=== PATIENT | female | born 2000 | race Caucasian/White ===

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

== ENCOUNTER 2019-07-26 16:55 | Emergency (ER) | payer BC, SELFPAY ==
[2019-07-26 17:30] VITALS: BP 104/69; PULSE 71; RESP 20; TEMP 36.8; O2SAT 99; BMI 27.8
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
[2019-07-26 17:39] LABS: Apearance,Urine Cloudy (Clear); Bilirubin,Urine Negative (Negative); Blood, Urine Trace (Negative); Color,Urine Yellow (Yellow); Glucose,Urine (UA) Negative (Negative); Ketones,Urine Negative (Negative); Protein,Urine Negative (Negative); Specific Gravity, Urine 1.015 (1.005-1.030); UTC Strep Screen (Rapid) Negative (Negative)
[2019-07-26 17:40] LABS: UTC Leukocyte Esterase,Urine 1+ (Negative); UTC Nitrate,Urine Negative (Negative); UTC Pregnancy Test, Urine Negative (Negative); Urobilinogen,Urine 0.2 EU/dl (0.2)
[2019-07-26 18:03] VITALS: BP 104/69; PULSE 71; RESP 20; TEMP 36.8; O2SAT 99
== END 2019-07-26 18:09 | disposition home or self-care (01) ==
PROVIDERS: Emergency Provider Nurse Practitioner; PCP Family Medicine
DX: N39.0 Urinary tract infection, site not specified (principal)
CPT/HCPCS: 81003; 81025; 87086; 87880; 99202

== ENCOUNTER → 2020-02-06 15:58 | Outpatient (CLI) | payer BC, SELFPAY ==
[2020-02-06 17:22] LABS: Basophils % 0.3 % (0.1-2.0); Eosinophils # 0.1 K/mm3 (0.0-0.4); Lymphocytes # 1.8 K/mm3 (0.7-4.5); Mean Corpuscular HGB Conc 32.3 g/dL (31.8-35.4); Mean Corpuscular Hemoglobin 29.6 pg (27.0-31.2); Mean Corpuscular Volume 91.6 fl (81-99); Mean Platelet Volume 9.2 fl (7.4-10.4); Monocytes # 0.4 K/mm3 (0.1-1.0); Monocytes % 4.7 % (1.7-9.3); Neutrophils # 5.6 K/mm3 (1.8-7.8); Platelet Count 208 K/mm3 (142-424); Red Blood Count 4.04 M/mm3 (4.20-5.40); Red Cell Distribution Width 12.5 % (11.5-17.5); White Blood Count 7.9 K/mm3 (4.5-13.0)
[2020-02-08 11:25] LABS: Covid-19 Nasal PCR Sendout Lex Not Detected
== END ==
PROVIDERS: PCP Physician Assistant; Visit Provider Physician Assistant
DX: Z03.818 Encounter for observation for suspected exposure to other biological agents ruled out (principal)
CPT/HCPCS: 36415; 85025; 87275; 87276; U0004

== ENCOUNTER 2020-06-15 05:15 | Outpatient (CLI) | payer BC, SELFPAY ==
[2020-06-15 05:27] VITALS: BMI 39.4
[2020-06-15 05:51] VITALS: BP 131/71; PULSE 89; RESP 17; TEMP 36.7; O2SAT 97; BMI 37.0
[2020-06-15 06:14] LABS: Microscopic, Urine URINE MICROSCOPIC (MICROSCOPIC)
[2020-06-15 06:20] LABS: Appearance,Urine SL CLOUDY (Clear); Bilirubin,Urine Negative (Negative); Blood, Urine Negative (Negative); Color,Urine YELLOW (Yellow); Glucose,Urine (UA) Negative (Negative); Ketones,Urine Negative (Negative); Leukocyte Esterase,Urine Negative (Negative); Nitrate,Urine Negative (Negative); Protein,Urine Negative (Negative); Specific Gravity, Urine 1.015 (1.005-1.030); Urobilinogen,Urine 0.2 EU/dl (0.2)
[2020-06-15 06:29] LABS: Amorphous Sediment,Urine 1+ /lpf; Bacteria,Urine Trace /lpf; Squamous Epithelial Cell,Urine TNTC #/hpf (0-5); WBC,Urine Occasional #/hpf (0-3)
[2020-06-15 06:32] LABS: Benzodiazepines Screen,Urine Negative ng/ml (<200)
[2020-06-15 06:33] LABS: Amphetamine/Metha Screen,Urine Negative ng/ml (<1000)
[2020-06-15 06:34] LABS: Barbiturates Screen,Urine Negative ng/ml (<200); Cannabinoid Screen,Urine Negative ng/ml (<50)
[2020-06-15 06:35] LABS: Cocaine Screen,Urine Negative ng/ml (<300); Methadone Screen,Urine Negative ng/ml (<300)
[2020-06-15 06:36] LABS: Opiate Screen,Urine Negative ng/ml (<300)
[2020-06-15 06:37] LABS: Phencyclidine Screen,Urine Negative ng/ml (<25)
== END 2020-06-15 06:25 | disposition home or self-care (01) ==
LOC: OBOUT 05:18 → OB 05:20
PROVIDERS: PCP Family Medicine; Referring Provider Student in an Organized Health Care Education/Training Program; Visit Provider Obstetrics & Gynecology
DX: O21.9 Vomiting of pregnancy, unspecified (principal); Z3A.33 33 weeks gestation of pregnancy
CPT/HCPCS: 59025; 80305; 81001; G0463

== ENCOUNTER → 2020-12-09 15:02 | Outpatient (CLI) | payer BC, SELFPAY ==
--- NOTE | 2020-12-09 15:20 | ECG_ITS ---
APPROVED REPORT Exam: Resting ECG HR:60 bpm ECG Measurements Heart Rate [address] 168 P -9 QRSd 64 QRS 11 QT 410 T 0 QTc 410 Conclusion Normal sinus rhythm Low voltage QRS Late r wave progression Abnormal ECG Electronically signed by : Antonio Orozco MD 12/09/2020 21:16:07
== END ==
PROVIDERS: PCP Physician Assistant; Visit Provider Nurse Practitioner Family
DX: R42 Dizziness and giddiness (principal)
CPT/HCPCS: 93005

== ENCOUNTER → 2021-01-26 13:28 | Outpatient (CLI) | payer BC, SELFPAY ==
[2021-01-26 14:01] LABS: Chlamydophila Pneumoniae, PCR Not Detected (NotDetected); Mycoplasma Pneumoniae, PCR Not Detected (NotDetected)
[2021-01-26 14:04] LABS: Adenovirus,PCR Not Detected (NotDetected); Bordetella Pertussis Not Detected (NotDetected); Coronavirus 229E Not Detected (NotDetected); Coronavirus NL63 Not Detected (NotDetected); Coronavirus OC43 Not Detected (NotDetected); Coronovirus HKU1,PCR Not Detected (NotDetected); Human Metapneumovirus Not Detected (NotDetected); Influenza A, PCR Not Detected (NotDetected); Influenza AH1, 2009 Not Detected (NotDetected); Influenza AH1, PCR Not Detected (NotDetected); Influenza AH3,PCR Not Detected (NotDetected); Influenza B, PCR Not Detected (NotDetected); Parainfluenza 1, PCR Not Detected (NotDetected); Parainfluenza 2, PCR Not Detected (NotDetected); Parainfluenza 3, PCR Not Detected (NotDetected); Parainfluenza 4, PCR Not Detected (NotDetected); Respiratory Syncytial Virus Not Detected (NotDetected); Rhinovirus/Enterovirus Not Detected (NotDetected)
[2021-01-26 14:33] LABS: Basophils % 0.8 % (0.1-2.0); Eosinophils % 0.1 % (0.1-12.0); Hematocrit 38.7 % (37.0-47.0); Hemoglobin 12.9 g/dL (12.2-16.2); Lymphocytes # 0.7 K/mm3 (0.7-4.5); Lymphocytes % 24.2 % (10-50); Mean Corpuscular HGB Conc 33.2 g/dL (31.8-35.4); Mean Corpuscular Hemoglobin 28.8 pg (27.0-31.2); Mean Corpuscular Volume 86.7 fl (81-99); Mean Platelet Volume 11.4 fl (7.4-10.4); Monocytes # 0.3 K/mm3 (0.1-1.0); Monocytes % 11.6 % (1.7-9.3); Neutrophils # 1.9 K/mm3 (1.8-7.8); Neutrophils % 63.3 % (37.0-80.0); Platelet Count 162 K/mm3 (142-424); Red Blood Count 4.47 M/mm3 (4.20-5.40); Red Cell Distribution Width 13.7 % (11.5-17.5); White Blood Count 2.9 K/mm3 (4.8-10.8)
[2021-01-26 15:52] LABS: Coronavirus 19, PCR Detected (NotDetected)
--- NOTE | 2021-01-27 12:01 | PC.NURSE ---
notified pt of positive COVID test results at this time
== END ==
PROVIDERS: PCP Physician Assistant; Visit Provider Family Medicine
DX: U07.1 COVID-19 (principal)
CPT/HCPCS: 36415; 85025; 87581; 87632; 87798; C9803; U0003; U0005

== ENCOUNTER → 2021-02-05 14:50 | Outpatient (CLI) | payer BC, SELFPAY ==
--- NOTE | 2021-02-05 15:00 | XR_ITS ---
PROCEDURE: XR CHEST PORTABLE CLINICAL HISTORY: COVID TESTING COMPARISON: No exams were available for comparison FINDINGS: The cardiomediastinal silhouette and pulmonary vascularity are within normal limits. No airspace disease apparent. There is a 10 mm nodule in the left midlung. The nodule does not appear calcified and margins are somewhat irregular superiorly. No acute bony abnormalities. IMPRESSION: 10 mm left midlung nodule. Suggest old films for comparison if available. If no old films are available then nonemergent unenhanced chest CT may provide further evaluation. No acute finding. Dictated by: Renaldo Varela MD 02/05/2021 15:39 Renaldo Varela MD in [place] 02/05/2021 15:39
[2021-02-05 16:32] LABS: Basophils % 0.4 % (0.1-2.0); Eosinophils # 0.1 K/mm3 (0.0-0.4); Eosinophils % 1.1 % (0.1-12.0); Hematocrit 46.2 % (37.0-47.0); Hemoglobin 15.1 g/dL (12.2-16.2); Lymphocytes # 2.1 K/mm3 (0.7-4.5); Lymphocytes % 30.8 % (10-50); Mean Corpuscular HGB Conc 32.6 g/dL (31.8-35.4); Mean Corpuscular Hemoglobin 28.5 pg (27.0-31.2); Mean Corpuscular Volume 87.4 fl (81-99); Mean Platelet Volume 10.3 fl (7.4-10.4); Monocytes # 0.4 K/mm3 (0.1-1.0); Monocytes % 5.2 % (1.7-9.3); Neutrophils # 4.3 K/mm3 (1.8-7.8); Neutrophils % 62.5 % (37.0-80.0); Platelet Count 276 K/mm3 (142-424); Red Blood Count 5.28 M/mm3 (4.20-5.40); Red Cell Distribution Width 13.1 % (11.5-17.5)
== END ==
PROVIDERS: PCP Family Medicine; Visit Provider Nurse Practitioner
DX: Z20.822 Contact with and (suspected) exposure to COVID-19 (principal)
CPT/HCPCS: 36415; 71045; 85025

== ENCOUNTER → 2021-05-24 14:13 | Outpatient (CLI) | payer BC, SELFPAY ==
[2021-05-24 15:21] LABS: Basophils # 0.1 K/mm3 (0-0.2); Basophils % 0.6 % (0.1-2.0); Eosinophils # 0.1 K/mm3 (0.0-0.4); Eosinophils % 1.3 % (0.1-12.0); Hematocrit 41.3 % (37.0-47.0); Hemoglobin 13.4 g/dL (12.2-16.2); Lymphocytes # 2.3 K/mm3 (0.7-4.5); Lymphocytes % 25.5 % (10-50); Mean Corpuscular HGB Conc 32.4 g/dL (31.8-35.4); Mean Corpuscular Hemoglobin 30.2 pg (27.0-31.2); Mean Platelet Volume 10.1 fl (7.4-10.4); Monocytes # 0.5 K/mm3 (0.1-1.0); Monocytes % 4.9 % (1.7-9.3); Neutrophils # 6.2 K/mm3 (1.8-7.8); Neutrophils % 67.7 % (37.0-80.0); Platelet Count 267 K/mm3 (142-424); Red Blood Count 4.44 M/mm3 (4.20-5.40); Red Cell Distribution Width 12.7 % (11.5-17.5); White Blood Count 9.1 K/mm3 (4.8-10.8)
== END ==
PROVIDERS: PCP Family Medicine; Visit Provider Family Medicine
DX: Z20.822 Contact with and (suspected) exposure to COVID-19 (principal)
CPT/HCPCS: 36415; 85025; 87275; 87276; C9803; U0003; U0005

== ENCOUNTER 2021-12-09 19:04 | Emergency (ER) | payer BC, OTHER, SELFPAY ==
[2021-12-09 19:07] VITALS: BP 117/84; PULSE 84; RESP 18; TEMP 36.7; O2SAT 99; BMI 31.8
[2021-12-09 19:36] LABS: Microscopic, Urine URINE MICROSCOPIC (MICROSCOPIC)
[2021-12-09 19:37] LABS: Appearance,Urine CLEAR (Clear); Bilirubin,Urine Negative (Negative); Blood, Urine 2+ (Negative); Color,Urine YELLOW (Yellow); Glucose,Urine (UA) Negative (Negative); Ketones,Urine Negative (Negative); Leukocyte Esterase,Urine Negative (Negative); Nitrate,Urine Negative (Negative); Protein,Urine Negative (Negative); Specific Gravity, Urine 1.025 (1.005-1.030); Urobilinogen,Urine 0.2 EU/dl (0.2)
[2021-12-09 19:46] LABS: Urine Pregnancy, HCG Qual. Negative (Negative)
[2021-12-09 19:56] LABS: WBC,Urine Occasional #/hpf (0-3)
[2021-12-09 20:05] LABS: Basophils % 0.7 % (0.1-2.0); Eosinophils # 0.1 K/mm3 (0.0-0.4); Hematocrit 39.9 % (37.0-47.0); Hemoglobin 13.1 g/dL (12.2-16.2); Lymphocytes % 32.6 % (10-50); Mean Corpuscular HGB Conc 32.8 g/dL (31.8-35.4); Mean Corpuscular Volume 91.3 fl (81-99); Mean Platelet Volume 9.7 fl (7.4-10.4); Monocytes # 0.3 K/mm3 (0.1-1.0); Monocytes % 4.7 % (1.7-9.3); Neutrophils # 3.6 K/mm3 (1.8-7.8); Neutrophils % 59.9 % (37.0-80.0); Platelet Count 279 K/mm3 (142-424); Red Blood Count 4.37 M/mm3 (4.20-5.40); Red Cell Distribution Width 12.7 % (11.5-17.5)
[2021-12-09 20:15] LABS: Chloride 103 mmol/L (98-107); Potassium 3.8 mmoL/L (3.5-5.1); Sodium 139 mmol/L (136-145)
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
[2021-12-09 20:18] LABS: Alanine Aminotransferase 17 U/L (12-78); Albumin Level 4.3 g/dl (3.5-5.0); Albumin/Globulin Ratio 1.3 (1.1-1.8); Alkaline Phosphatase 84 U/L (38-126); Anion Gap 12.8 mEq/L (5-15); Aspartate Amino Transferase 26 U/L (14-36); Bilirubin,Total 0.5 mg/dl (0.2-1.3); Blood Urea Nitrogen 10 mg/dl (7-17); Calcium 8.9 mg/dl (8.4-10.2); Carbon Dioxide 27 mmol/L (22.0-30.0); Creatinine Clearance Estimated 162 mL/min (50-200); Estimated Glomerular Filt Rate 105 ml/min (>60); GFR (African American) 127 ML/MIN (>60); Globulin 3.3 g/dL (1.3-3.2); Glucose 106 mg/dl (74-100); Lipase 63 U/L (23-300); Total Protein,Serum 7.6 g/dl (6.3-8.2)
[2021-12-09 20:27] LABS: HCG Qualitative, Serum Negative (Negative)
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
[2021-12-09 21:30] VITALS: BP 145/91; PULSE 65; O2SAT 100
[2021-12-09 21:59] VITALS: BP 134/78; PULSE 67; RESP 18; TEMP 36.7; O2SAT 100
== END 2021-12-09 22:04 | disposition home or self-care (01) ==
PROVIDERS: Emergency Medicine; Emergency Provider Emergency Medicine; PCP Physician Assistant
DX: R10.9 Unspecified abdominal pain (principal); N94.6 Dysmenorrhea, unspecified; V89.0XXA Person injured in unspecified motor-vehicle accident, nontraffic, initial encounter; Z79.899 Other long term (current) drug therapy
CPT/HCPCS: 71046; 72100; 72170; 74177; 80053; 81001; 81025; 83690; 84703; 85025; 99285; Q9967

== ENCOUNTER 2022-07-16 16:49 | Emergency (ER) | payer BC, SELFPAY ==
[2022-07-16 17:05] VITALS: BP 143/75; PULSE 72; RESP 18; TEMP 36.8; O2SAT 100; BMI 36.8
--- NOTE | 2022-07-16 17:07 | EXP.UTC ---
Discharge Plan Disposition Patient Disposition: Home, Self-Care Condition: Good Prescriptions Prescriptions: No Action melatonin 5 mg capsule 5 mg PO DAILY trazodone 50 mg tablet 50 mg PO QHS Qty: 30 0RF nitrofurantoin monohyd/m-cryst 100 MG capsule 100 mg PO BID 10 Days Qty: 20 0RF fluoxetine 40 mg capsule 60 mg PO DAILY Referrals Follow up/Referrals: Mady Hampton PA [Primary Care Provider] - See instructions Activity Restrictions/Add. Instructions Additional Instructions/Restrictions: make sure to eat throughout the day to prevent dizziness and weakness. Increase fluids. If symptoms persist or worsen, follow up with PCP. Clinical Impressions Clinical Impression: Dizziness Discharge ED [place] Rol[place] [facility] [place] Stated complaint: heat exhaustion, wants to be checked out Time Seen by Provider: 07/16/22 17:06 History of Present Illness Provider Complaint: Pt relates that she was at the end of her shift and felt weak and dizzy and had to sit down right at the spot she was standing. She reports that she had not eaten anything that day. She reports that this morning she awoke feeling weak and nauseated and took a test that was negative. She states although she feels perfectly fine she had to come get checked out for a note for work. Related Data Home Medications Medication Instructions Recorded Confirmed aripiprazole 5 mg tablet 5 mg PO DAILY mood stabilzer 07/16/22 07/16/22 prazosin 2 mg capsule 2 mg PO DAILY dreams 07/16/22 07/16/22 Previous Rx's Medication Instructions Recorded trazodone 50 mg tablet 50 mg PO QHS sleep #30 tabs 01/17/19 Allergies Allergy/AdvReac Type Severity Reaction Status Date / Time No Known Allergies Allergy Verified 07/16/22 17:08 [facility] Disclaimer: The information contained in this section may have been updated after the patient was seen, as this information can be updated by other users. Social History Smoking Status: Never smoker alcohol intake: never current occupational status: employed Travel in the last 8 weeks: None ROS Obtained: Yes All systems reviewed & no additional complaints except as documented Constitutional Constitutional: Reports system reviewed and no additional complaints, except as documented, Reports fatigue and Reports weakness Eyes Eyes: Reports system reviewed and no additional complaints, except as documented ENT Ears, Nose, Mouth, and Throat: Reports system reviewed and no additional complaints, except as documented and Reports dizziness Cardiovascular Cardiovascular: Reports system reviewed and no additional complaints, except as documented Respiratory Respiratory: Reports system reviewed and no additional complaints, except as documented Gastrointestinal Gastrointestingal: Reports system reviewed and no additional complaints, except as documented and nausea Genitourinary Female Genitourinary: Reports system reviewed and no additional complaints, except as documented Musculoskeletal Musculoskeletal: Reports system reviewed and no additional complaints, except as documented Integumentary/Breasts Skin/Breast: Reports system reviewed and no additional complaints, except as documented Neurologic Neurologic: Reports system reviewed and no additional complaints, except as documented, Reports dizziness and Reports weakness Endocrine Endocrine: Reports system reviewed and no additional complaints, except as documented and Reports fatigue Hematologic/Lymphatic Henatologic/Lymphatic: Reports system reviewed and no additional complaints, except as documented Allergic/Immunologic Allergic/Immunologic: Reports system reviewed and no additional complaints, except as documented Physical Exam General General appearance: alert and in no apparent distress Head Head exam: atraumatic and normocephalic Eye Eye exam: Present normal appearance, PERRL and EOMI ENT ENT exam: Present norm
[2022-07-16 17:22] VITALS: BP 138/73; PULSE 70; RESP 16; TEMP 36.7; O2SAT 100
== END 2022-07-16 17:25 | disposition home or self-care (01) ==
PROVIDERS: Emergency Provider Nurse Practitioner Family; PCP Physician Assistant
DX: R42 Dizziness and giddiness (principal)
CPT/HCPCS: 99212; 99213; G0463

== ENCOUNTER 2022-08-01 17:46 | Emergency (ER) | payer BC, SELFPAY ==
[2022-08-01 17:55] VITALS: BP 119/76; PULSE 87; RESP 18; TEMP 37; O2SAT 100; BMI 34.5
[2022-08-01 18:10] LABS: UTC Pregnancy Test, Urine Negative (Negative)
--- NOTE | 2022-08-01 18:14 | EXP.UTC ---
Discharge Plan Disposition Patient Disposition: Home, Self-Care Condition: Good Prescriptions Prescriptions: No Action prazosin 2 mg capsule 2 mg PO DAILY Label Comments: TAKE 1 CAPSULE BY MOUTH ONCE DAILY AT BEDTIME FOR 30 DAYS aripiprazole 5 mg tablet 5 mg PO DAILY trazodone 50 mg tablet 50 mg PO QHS Referrals Follow up/Referrals: Mady Hampton PA [Primary Care Provider] - See instructions Activity Restrictions/Add. Instructions Additional Instructions/Restrictions: Follow up with OBGYN for further testing and evaluation Clinical Impressions Clinical Impression: Encounter for test with result negative Instructions Patient Instructions: Absent Periods, Amenorrhea (Alternative Therapy) Discharge ED Provider: Anh Crow [facility] [place] General Stated complaint: test Mode of Arrival: Ambulatory Source of Information: Patient Limitations: No Limitations Time Seen by Provider: 08/01/22 18:14 Description of Symptoms (Recalled from Triage Doc. by RN): PATIENT C/O LATE PERIOD AND REQUESTING TEST HEENT Symptoms (Recalled from RN notes): No Resp Symptoms (Recalled from RN notes): No Skin Symptoms (Recalled from RN notes): No MS Symptoms (Recalled from RN notes): No Functional Status (Recalled from RN notes): WNL History of Present Illness Provider Complaint: Patient states that she is about a week late on her period and she was worried that she may be States that she wanted to come in and get a test to see if she may be pregant Related Data Home Medications Medication Instructions Recorded Confirmed aripiprazole 5 mg tablet 5 mg PO DAILY mood stabilzer 07/16/22 07/16/22 prazosin 2 mg capsule 2 mg PO DAILY dreams 07/16/22 07/16/22 trazodone 50 mg tablet 50 mg PO QHS Insomnia 08/01/22 08/01/22 Allergies Allergy/AdvReac Type Severity Reaction Status Date / Time No Known Allergies Allergy Verified 07/16/22 17:08 Worker's Comp Is this a Worker's Comp case?: No [facility] Disclaimer: The information contained in this section may have been updated after the patient was seen, as this information can be updated by other users. Social History Smoking Status: Never smoker alcohol intake: never current occupational status: employed Travel in the last 8 weeks: None ROS Obtained: Yes All systems reviewed & no additional complaints except as documented and Yes Systems reviewed as appropriate & no additional complaints except as documented Constitutional Constitutional: Reports system reviewed and no additional complaints, except as documented and Reports as per HPI ENT Ears, Nose, Mouth, and Throat: Reports system reviewed and no additional complaints, except as documented and Reports as per HPI Cardiovascular Cardiovascular: Reports system reviewed and no additional complaints, except as documented and Reports as per HPI Respiratory Respiratory: Reports system reviewed and no additional complaints, except as documented and Reports as per HPI Gastrointestinal Gastrointestingal: Reports system reviewed and no additional complaints, except as documented and as per HPI; Denies abdominal pain or cramping Genitourinary Female Genitourinary: Reports system reviewed and no additional complaints, except as documented, Reports as per HPI and Reports amenorrhea Musculoskeletal Musculoskeletal: Reports system reviewed and no additional complaints, except as documented and Reports as per HPI Physical Exam General General appearance: alert and in no apparent distress Eye Eye exam: Present normal appearance, PERRL and EOMI ENT ENT exam: Present normal exam, normal oropharynx, mucous membranes moist and TM's normal bilaterally Chest Chest inspection: Present normal inspection and symmetric chest wall rise Respiratory Respiratory exam: Present normal lung sounds bilaterally; Absent respiratory distress or wheezes Cardiovascular Cardiovascular
[2022-08-01 18:39] LABS: HCG Qualitative, Serum Negative (Negative)
[2022-08-01 18:41] VITALS: BP 119/76; PULSE 87; RESP 18; TEMP 37; O2SAT 100
== END 2022-08-01 18:58 | disposition home or self-care (01) ==
PROVIDERS: Emergency Provider Nurse Practitioner; PCP Physician Assistant
DX: Z32.02 Encounter for pregnancy test, result negative (principal)
CPT/HCPCS: 81025; 84703; 99212; G0463

== ENCOUNTER 2022-08-10 11:31 | Emergency (ER) | payer BC, SELFPAY ==
--- NOTE | 2022-08-10 11:35 | XR_ITS ---
FINAL REPORT CLINICAL HISTORY: foot pain FINDINGS: Left foot Three views were obtained. There is no acute fracture or dislocation. The joint spaces appear normal. No soft tissue abnormality is identified. IMPRESSION: No acute process. Reviewed, Interpreted and Dictated by Reyes Monge III, MD Transcribed by Bina Aguirre Authenticated and [facility]
[2022-08-10 11:40] VITALS: BP 136/86; PULSE 73; RESP 17; TEMP 36.9; O2SAT 100; BMI 36.3
--- NOTE | 2022-08-10 12:03 | EXP.UTC ---
Discharge Plan Disposition Patient Disposition: Home, Self-Care Condition: Good Prescriptions Prescriptions: No Action prazosin 2 mg capsule 2 mg PO DAILY Label Comments: TAKE 1 CAPSULE BY MOUTH ONCE DAILY AT BEDTIME FOR 30 DAYS aripiprazole 5 mg tablet 5 mg PO DAILY trazodone 50 mg tablet 50 mg PO QHS Referrals Follow up/Referrals: Mady Hampton PA [Primary Care Provider] - See instructions Activity Restrictions/Add. Instructions Additional Instructions/Restrictions: Make sure to check shoes to make sure you are not having pressure on top of foot Follow up with your Family Doctor if pain persists Follow up with Podiatry if needed Straight to ER if any life threatening symptoms Ice to area may help with pain Soaking foot in warm water and epson salt may help with tenderness and soreness Clinical Impressions Clinical Impression: Foot pain Qualifiers: Laterality: left Qualified Code(s): M79.672 - Pain in left foot Stand Alone Forms Stand Alone Forms: Work/School Release Instructions Patient Instructions: How to Apply an Humble Wrap, DI for Foot Pain Discharge ED Provider: Anh Crow [facility] [place] HPI General Stated complaint: pain in Lt foot, no accident Mode of Arrival: Ambulatory Source of Information: Patient Limitations: No Limitations Time Seen by Provider: 08/10/22 12:03 Description of Symptoms (Recalled from Triage Doc. by RN): PATIENT C/O LEFT FOOT PAIN X 2 WEEKS. NO KNOWN INJURY HEENT Symptoms (Recalled from RN notes): No Resp Symptoms (Recalled from RN notes): No Skin Symptoms (Recalled from RN notes): No MS Symptoms (Recalled from RN notes): Yes Functional Status (Recalled from RN notes): WNL History of Present Illness Provider Complaint: Patient states that for the last two weeks she has been having pain in the top of her left foot States that she hasnt down anything that she knows of to hurt it States that she does work on her feet alot not sure if that may be causing it or not Related Data Home Medications Medication Instructions Recorded Confirmed aripiprazole 5 mg tablet 5 mg PO DAILY mood stabilzer 07/16/22 07/16/22 prazosin 2 mg capsule 2 mg PO DAILY dreams 07/16/22 07/16/22 trazodone 50 mg tablet 50 mg PO QHS Insomnia 08/01/22 08/01/22 Allergies Allergy/AdvReac Type Severity Reaction Status Date / Time No Known Allergies Allergy Verified 07/16/22 17:08 Worker's Comp Is this a Worker's Comp case?: No [facility] Disclaimer: The information contained in this section may have been updated after the patient was seen, as this information can be updated by other users. Social History Smoking Status: Never smoker alcohol intake: never current occupational status: employed Travel in the last 8 weeks: None ROS Obtained: Yes All systems reviewed & no additional complaints except as documented and Yes Systems reviewed as appropriate & no additional complaints except as documented Constitutional Constitutional: Reports system reviewed and no additional complaints, except as documented and Reports as per HPI ENT Ears, Nose, Mouth, and Throat: Reports system reviewed and no additional complaints, except as documented and Reports as per HPI Cardiovascular Cardiovascular: Reports system reviewed and no additional complaints, except as documented and Reports as per HPI Respiratory Respiratory: Reports system reviewed and no additional complaints, except as documented and Reports as per HPI Gastrointestinal Gastrointestingal: Reports system reviewed and no additional complaints, except as documented and as per HPI Musculoskeletal Musculoskeletal: Reports system reviewed and no additional complaints, except as documented, Reports as per HPI and Reports other Comments: Pain in top of left foot Denies known injury started about 2 weeks ago Physical Exam General General appearance: alert and in no apparent distress Chest Chest inspection: Present normal
[2022-08-10 12:30] VITALS: BP 136/86; PULSE 73; RESP 17; TEMP 36.9; O2SAT 100
== END 2022-08-10 12:33 | disposition home or self-care (01) ==
PROVIDERS: Emergency Provider Nurse Practitioner; PCP Physician Assistant
DX: M79.672 Pain in left foot (principal)
CPT/HCPCS: 73630; 99212; 99213; G0463

== ENCOUNTER 2022-08-14 21:35 | Emergency (ER) | payer BC, SELFPAY ==
[2022-08-14 21:45] VITALS: BP 133/80; PULSE 74; RESP 16; TEMP 36.6; O2SAT 99; BMI 36.3
--- NOTE | 2022-08-14 21:48 | XR_ITS ---
PROCEDURE INFORMATION: Exam: XR Left Foot Exam date and time: 08/14/2022 9:44 PM Age: 21 years old Clinical indication: Pain; Foot; Left; Additional info: L foot pain TECHNIQUE: Imaging protocol: Radiologic exam of the left foot. Views: 3 or more views. COMPARISON: CR XR FOOT LT MIN 3V 08/10/2022 11:44 AM FINDINGS: Bones/joints: No acute fracture or malalignment Soft tissues: Unremarkable IMPRESSION: No acute findings.
--- NOTE | 2022-08-14 22:01 | HMH.EDLOEX ---
Discharge Plan Disposition Patient Disposition: Home, Self-Care Chief Complaint: Extremity Injury, Lower Prescriptions Prescriptions: No Action prazosin 2 mg capsule 2 mg PO DAILY Label Comments: TAKE 1 CAPSULE BY MOUTH ONCE DAILY AT BEDTIME FOR 30 DAYS aripiprazole 5 mg tablet 5 mg PO DAILY trazodone 50 mg tablet 50 mg PO QHS Referrals Follow up/Referrals: Mady Hampton PA [Primary Care Provider] - See instructions Clinical Impressions Clinical Impression: Foot contusion Stand Alone Forms Stand Alone Forms: Work/School Release Instructions Patient Instructions: DI for Foot Pain Discharge ED Provider: Jessee (ED)Garrett Lower Extremity Injury HPI General Chief Complaint: Extremity Injury, Lower Stated Complaint: AO 08/14 left foot pain Time Seen by Provider: 08/14/22 21:40 Mode of Arrival: Ambulatory Source of Information: Patient and Medical Record Limitations: No Limitations Description of Symptoms (Recalled from ER Triage Doc. by RN): pt states her mila wooden toy table fell on the top of her L foot today and she is c/o L foot pain. pt states she was also seen last week by Dr. Shepherd for L foot pain. pt states she was told she either has a low and long arch or fracture. according to the pt if the pain did not start improving Dr. Shepherd is going to order a CT. History of Present Illness HPI Narrative: acute injury lt foot as wooden table fell on it austin Finney MD complaint: foot injury Onset (ago): hour(s) Injury: Left: foot Type of Injury: blunt Place: home Severity: moderate Context: direct blow Associated symptoms: swelling and able to partially bear weight Other symptoms: none Related Data Home Medications Medication Instructions Recorded Confirmed aripiprazole 5 mg tablet 5 mg PO DAILY mood stabilzer 07/16/22 07/16/22 prazosin 2 mg capsule 2 mg PO DAILY dreams 07/16/22 07/16/22 trazodone 50 mg tablet 50 mg PO QHS Insomnia 08/01/22 08/01/22 Allergies Allergy/AdvReac Type Severity Reaction Status Date / Time No Known Allergies Allergy Verified 07/16/22 17:08 [facility] Disclaimer: The information contained in this section may have been updated after the patient was seen, as this information can be updated by other users. Social History Smoking Status: Never smoker alcohol intake: never current occupational status: employed Travel in the last 8 weeks: None ROS Obtained: Yes All systems reviewed & no additional complaints except as documented Physical Exam General General appearance: alert Head Head exam: normocephalic Eye Eye exam: Present PERRL and EOMI ENT ENT exam: Present mucous membranes moist Neck Neck exam: Present trachea midline Respiratory Respiratory exam: Present normal lung sounds bilaterally; Absent respiratory distress Cardiovascular Cardiovascular exam: Present regular rate Expanded Lower Extremity Exam Left: Lower leg exam: Present Achilles tendon intact Foot/toe exam: Present tenderness and swelling; Absent full ROM Neurovascular/Tendon exam: Absent pulse deficit Neurological Exam Neurological exam: Present alert, oriented X3 and CN II-XII intact; Absent motor sensory deficit Psychiatric Psychiatric exam: Present normal affect Skin Skin exam: Absent rash Medical Decision Making Medical Records Medical records reviewed: Yes I reviewed the patient's medical records. Waldemar Inquiry Pt receiving controlled substance: No Vital Signs: 08/14/22 21:45 08/14/22 22:34 08/14/22 23:30 Temperature 97.9 F 97.9 F Temperature Source Oral Pulse Rate 79 86 Pulse Rate [Left] 74 Respiratory Rate 16 16 Blood Pressure 140/94 H 137/83 Blood Pressure [Right Arm] 133/80 Blood Pressure Mean [Right Arm] 97 Blood Pressure Source [Right Arm] Automatic Cuff Blood Pressure Position [Right Arm] Sitting 02 Sat by Pulse Oximetry 99 100 Oxygen Delivery Method Room Air Orders
--- NOTE | 2022-08-14 22:31 | PC.NURSE ---
Rounded on pt. No needs at this time.
[2022-08-14 22:34] VITALS: BP 140/94; PULSE 79; O2SAT 100
[2022-08-14 23:30] VITALS: BP 137/83; PULSE 86; RESP 16; TEMP 36.6
== END 2022-08-14 23:49 | disposition home or self-care (01) ==
PROVIDERS: Emergency Provider Emergency Medicine; PCP Physician Assistant
DX: S90.32XA Contusion of left foot, initial encounter (principal); W20.8XXA Other cause of strike by thrown, projected or falling object, initial encounter
CPT/HCPCS: 73630; 99283; 99284